=== PATIENT | male | born 1980 ===

== ENCOUNTER 2018-07-21 20:44 | Emergency (ER) | payer SELFPAY ==
[2018-07-21 21:47] VITALS: O2SAT 100
--- NOTE | 2018-07-21 23:18 | ED PDOC ---
Lower Extremity Pain/Injury Time Seen by Provider: 07/21/18 22:12 Chief Complaint (Nursing): Lower Extremity Problem/Injury History Per: Patient History/Exam Limitations: no limitations Onset/Duration Of Symptoms: Hrs Additional Complaint(s): 37 yo M with no medical problems present for bilateral knee pain since waking this morning, Right worse than left. Pt notes that at work he was kneeling on knees a lot, but unsure if that is why. He reports swelling and some redness. Pain worse with movement or weight bearing. Pt also notes drinking beer yesterday and a lot of meat. Denies history of gout, fevers, numbness or tingling, falls or trauma, decrease motor or sensation PMD: Dr. Lovell Past Medical History Reviewed: Historical Data, Nursing Documentation, Vital Signs Vital Signs: Last Vital Signs Temp 98.4 F 07/21/18 21:43 Pulse 69 07/21/18 21:43 Resp 18 07/21/18 21:43 BP 130/83 07/21/18 21:43 Pulse Ox 100 07/21/18 21:43 Primary Care Provider: Geoffrey Lovell - Medical History PMH: No Chronic Diseases - Family History Family History: States: Unknown Family Hx - Social History Alcohol: Occasional - Immunization History Hx Tetanus Toxoid Vaccination: Yes (up to date) - Home Medications Home Medications: Ambulatory Orders Medication Instructions Recorded Clindamycin [Cleocin] 300 mg PO TID #30 cap 03/01/15 Sulfamethoxazole/Trimethopri 1 tab PO BID #14 tab 03/01/15 [Bactrim Ds 800 mg-160 mg] Cephalexin [Keflex] 500 mg PO TID 7 Days #21 capsule 07/21/18 Naproxen 500 mg PO BID #20 tab 07/21/18 - Allergies Allergies/Adverse Reactions: Allergies Allergy/AdvReac Type Severity Reaction Status Date / Time No Known Allergies Allergy Verified 07/21/18 21:47 Review of Systems Constitutional: Negative for: Fever Musculoskeletal: Positive for: Leg Pain Neurological: Negative for: Weakness, Numbness Physical Exam - Reviewed Nursing Documentation Reviewed: Yes Vital Signs Reviewed: Yes - Physical Exam Comments: GENERAL APPEARANCE: Patient is awake, alert, oriented x 3, in no acute distress. SKIN: Warm, dry; (-) cyanosis. EXTREMITY: pulses +2, capillary refill <sec, BLE: (+)FROM, (+)mild tenderness, swelling and erythema to distal anterior bilateral knees, R>L; (-)ligamenouts laxity (-)wamrth (-)joint effusion, Achilles tendon intact and nontender, NVI CARDIOVASCULAR: (+) distal pulse. NEUROLOGIC: (+) distal sensation. - ECG O2 Sat by Pulse Oximetry: 100 Medical Decision Making Medical Decision Makin:15 gout vs cellulitis vs knee irritation/inflammation from work -- no concern for septic joint at this time, pt with FROM, no excessive tenderness or pain with passive ROM -- xray -- toradol 23:00 xrays reviewed by me no actue fx, dislocation, STS or djd discussed with pt he will be contacted if any discrepancies with radiology read 23:15 Zafar wrap applied to right knee, pt reports immediate relief likely irritation from work, will cover with NSAIDs and antibiotics Discussed results, diagosis, treatment, return precautions and f/u with pt who is understanding, in agreement and stable for dc Disposition - Clinical Impression Clinical Impression: Knee pain, bilateral, Cellulitis of knee, right - Patient ED Disposition Is Patient to be Admitted: No Counseled Patient/Family Regarding: Studies Performed, Diagnosis, Need For Followup, Rx Given - Disposition Referrals: Geoffrey Lovell MD [Medical Doctor] - Disposition: Routine/Home Disposition Time: 23:17 Condition: STABLE Additional Instructions: Thank you for letting us take care of you today. Rest ice and elevate legs. Wear zafar wrap for compression. The emergency medical care you received today was directed at your acute symptoms. If you were prescribed any medication, please fill it and take as directed. It may take several days for your symptoms to resolve. Return to the Emergency Department if your symptoms worsen, do not improve, or if you have any other problems, such as worsening redness or swelling, unable to bend knees Please contact your doctor in 2 days for re-evaluation and follow up / or call one of the physicians/clinics you have been referred to that are listed on the Patient Visit Information form that is included in your discharge packet. Bring any paperwork you were given at discharge with you along with any medications you are taking to your follow up visit. Our treatment cannot replace ongoing medical care by a primary care provider (PCP) outside of the emergency department. Prescriptions: Cephalexin [Keflex] 500 mg PO TID 7 Days #21 capsule Naproxen 500 mg PO BID #20 tab Instructions: Gout, Cellulitis (Skin Infection), Adult (DC) Print Language: GREEK - POA Present On Arrival: None
[2018-07-21 23:26] VITALS: BP 137/80; PULSE 67; RESP 19; TEMP 97.9
--- NOTE | 2018-07-22 08:58 | RAD ---
Date of service: 07/21/2018 PROCEDURE: Bilateral Knee Radiographs. HISTORY: swelling and pain, R>L COMPARISON: None. TECHNIQUE: 4 views obtained. FINDINGS: BONES: Right Knee: No acute fracture or destructive bony lesion identified. Left Knee: No acute fracture or destructive bony lesion identified. JOINTS: Right Knee: No subluxation/dislocation. No osteoarthritis. Left knee: No subluxation/dislocation. No osteoarthritis. SOFT TISSUES: Right Knee: Normal. Left Knee: Normal. JOINT EFFUSION: Right Knee: None. Left Knee: None. OTHER FINDINGS: None. IMPRESSION: Unremarkable radiographs of the knees.
== END 2018-07-21 23:25 | disposition home or self-care (01) ==
LOC: H.ER 20:44
DX: L03.115 Cellulitis of right lower limb (principal)
CPT/HCPCS: 73562; 96372; 99285; J1885